=== PATIENT | male | born 1980 | race Caucasian/White ===

== ENCOUNTER 2017-06-09 18:25 | Emergency (ER) | payer SELFPAY | END 2017-06-09 19:30 | disposition home or self-care (01) | LOC: ER 18:25 | DX: S01.81XA Laceration without foreign body of other part of head, initial encounter (principal); Z23 Encounter for immunization; W18.30XA Fall on same level, unspecified, initial encounter; Y92.049 Unspecified place in boarding-house as the place of occurrence of the external cause | CPT/HCPCS: 90471 ==